=== PATIENT | female | born 1985 | race Caucasian/White ===

== ENCOUNTER 2016-10-02 13:10 | Emergency (ER) | payer SELFPAY ==
[~2016-10-02] VITALS: Ht 162.6 cm; Wt 68.8 kg
[~2016-10-02 13:10] MED LIST: AMPHETAMINE SAL20 MG PO; ATARAX,VISTARIL25 MG PO; METHADONE10 MG PO; PERCOCET PO; TRAZODONE HCL50 MG PO; VIIBRYD40 MG PO; ZOFRAN8 MG PO
[2016-10-02 15:22] VITALS: BP 136/82
== END 2016-10-02 15:23 | disposition home or self-care (01) ==
LOC: EME 13:10
DX: Z76.0 Encounter for issue of repeat prescription (principal); F17.200 Nicotine dependence, unspecified, uncomplicated
CPT/HCPCS: 99281; 99283